=== PATIENT | female | born 1945 ===

== ENCOUNTER 2017-04-13 07:00 | Day surgery (SDC) | payer OTHER ==
[~2017-04-13] VITALS: Ht 154.9 cm; Wt 63.5 kg
[2017-04-13] VITALS (9 sets, daily range): BP systolic 141–182; BP diastolic 60–70
[~2017-04-13 07:00] MED LIST: ASPIR 8181 MG ORAL; DIOVAN160 MG ORAL; PRAVASTATIN SOD10 M1 ORAL; TOPIRAMATE200 MG PO; VITAMIN D1000 UNI1 ORAL
[2017-04-13] MEDS ORDERED: Vigamox Opth Soln 3ml ONE (07:37)
[2017-04-13] MEDS ORDERED: Tobradex Opth Susp 2.5ml ONE (07:38)
[2017-04-13] MEDS ORDERED: Flurbiprofen 0.03% Opth Sol 2.5ml ONE (07:38)
[2017-04-13] MEDS ORDERED: Akten 3.5% 1ml Btl ONE (07:38)
[2017-04-13] MEDS ORDERED: Tropicamide 1% Opth 15ml Soln ONE (07:38)
[2017-04-13] MEDS ORDERED: Phenylephrine 2.5% Op 2ml Soln ONE (07:38)
[2017-04-13] MEDS: Akten 3.5% 1ml Btl RIGHT EYE SCH ×3 (07:40→07:59)
--- NOTE | 2017-04-13 07:40 | Pre-Procedure Note/Attestation ---
Pre-Procedure Note/Attestation Complete Prior to Procedure Planned Procedure: right Procedure Narrative: cataract extraction with implant right eye Indications for Procedure Pre-Operative Diagnosis: cataract right eye Attestation I attest that I discussed the nature of the procedure; its benefits; risks and complications; and alternatives (and the risks and benefits of such alternatives ), prior to the procedure, with the patient (or the patient's legal pharmaceutical sales representative). I attest that, if there was a reasonable possibility of needing a blood transfusion, the patient (or the patient's legal pharmaceutical sales representative) was given the [facility] standardized written summary, pursuant to the [place] Blood Safety Act ([place] Health and Safety Code # 1645, as amended). I attest that I re-evaluated the patient just prior to the surgery and that there has been no change in the patient's H&P, except as documented below: ROHAN ORNELAS Apr 13, 2017 07:40
[2017-04-13] MEDS: Vigamox Opth Soln 3ml RIGHT EYE SCH ×3 (07:41→08:00)
[2017-04-13] MEDS: Phenylephrine 2.5% Op 2ml Soln RIGHT EYE SCH ×3 (07:41→07:59)
[2017-04-13] MEDS: Flurbiprofen 0.03% Opth Sol 2.5ml RIGHT EYE SCH ×3 (07:41→08:00)
[2017-04-13] MEDS: Tobradex Opth Susp 2.5ml RIGHT EYE SCH ×3 (07:41→08:00)
[2017-04-13] MEDS: Tropicamide 1% Opth 15ml Soln RIGHT EYE SCH ×3 (07:41→07:59)
[2017-04-13] MEDS ORDERED: Sterile Water Irrig 1000ml IRRIG ONE (08:30)
[2017-04-13] MEDS ORDERED: NS Irrig 1000ml ONE (08:30)
[2017-04-13] MEDS ORDERED: LR 1000ml ONE (08:30)
--- NOTE | 2017-04-13 08:42 | Immediate Post-Op Evaluation ---
Immediate Post-Op Evalulation Immediate Post-Op Evalulation Procedure: Right eye cataract removal w/ implant Date of Evaluation: Apr 13, 2017 Time of Evaluation: 08:54 IV Fluids: LR Blood Products: 0 Estimated Blood Loss: less than 2 ml Urinary Output: 0 Blood Pressure Systolic: 180 Blood Pressure Diastolic: 65 Pulse Rate: 56 Respiratory Rate: 16 O2 Sat by Pulse Oximetry: 99 Temperature (Fahrenheit): 97.9 Pain Score (1-10): 0 Nausea: No Vomiting: No Complications none Patient Status: awake, reacts, patent Hydration Status: adequate Given Within 1 Hr of Incision: No - none per surgeon Marcela Alonso CRNA Apr 13, 2017 08:42
--- NOTE | 2017-04-13 08:47 | Anethesia Preoperative Eval ---
Anesthesia Pre-op PMH/ROS General Date of Evaluation: Apr 13, 2017 Time of Evaluation: 08:20 Anesthesiologist: Celeste ASA Score: ASA 2 Mallampati Score Class I : Soft palate, uvula, fauces, pillars visible Class II: Soft palate, uvula, fauces visible Class III: Soft palate, base of uvula visible Class IV: Only hard plate visible Mallampati Classification: Class III Surgeon: Juan Diagnosis: right eye catract Surgical Procedure: right eye cataract removal with implant Anesthesia History: none Family History: no anesthesia problems Allergies: Coded Allergies: SULFA (SULFONAMIDE ANTIBIOTICS) (Verified Allergy, Severe, 04/12/17) anaphylactic shock DIAZEPAM (Verified Allergy, Intermediate, 04/12/17) agitated MEPERIDINE (Verified Allergy, Intermediate, 04/12/17) agitated Past Medical History Cardiovascular: Reports: HTN, other - cholesterol Pulmonary: Reports: other - uses CPAP for polio syndrome Gastrointestinal/Genitourinary: Denies: GERD, CRI, ESRD, other Neurologic/Psychiatric: Denies: dementia, CVA, depression/anxiety, TIA, other Endocrine: Denies: DM, hypothyroidism, steroids, other HEENT: Reports: cataract (L), cataract (R) Hematology/Immune: Reports: other - polio - got it at 8 years old Musculoskeletal/Integumentary: Reports: OA Anesthesia Pre-op Phys. Exam Physician Exam Last Vital Signs Date Time Temp Pulse Resp B/P (MAP) Pulse Ox O2 Delivery O2 Flow Rate FiO2 04/13/17 07:56 97.5 56 20 174/68 100 Room Air Constitutional: NAD Neurologic: CN 2-12 intact Cardiovascular: RRR Respiratory: CTA Gastrointestinal: S/NT/ND Airway Exam Mallampati Score: Class III MO: full ROM: full Teeth: intact Dentures: no upper, no lower Anesthesia Pre-op A/P Labs chart reviewed Studies Pre-op Studies: EKG - NSR Risk Assessment & Plan Assessment: AxO x3 Plan: plan discussed with patient and surgeon, plan for local with monitoring Status Change Before Surgery: No Pre-Antibiotics Given Within 1 Hr of Incision: Marcela Solorzano CRNA Apr 13, 2017 08:47
--- NOTE | 2017-04-13 08:47 | 48 Hour Post Anesthesia Eval ---
Post Anesthesia Evaluation Procedure: Right eye cataract removal w/ implant Date of Evaluation: Apr 13, 2017 Time of Evaluation: 09:00 Blood Pressure Systolic: 177 0: 68 Pulse Rate: 59 Respiratory Rate: 18 Temperature (Fahrenheit): 97.7 O2 Sat by Pulse Oximetry: 100 Airway: patent Nausea: No Vomiting: No Pain Intensity: 0 Hydration Status: adequate Cardiopulmonary Status: WNL Mental Status/LOC: patient returned to baseline Follow-up care needed: patient intructions given Marcela Alonso CRNA Apr 13, 2017 08:47
--- NOTE | 2017-04-13 08:58 | Brief Operative Note ---
Immediate Post Operative Note Operative Note Pre-op Diagnosis: cataract right eye Procedure: phacoemulsification of cataract with implant right eye Post-op Diagnosis: same as pre-op Surgeon: rohan navarro Brass Polisher: none Anesthesiologist: tani contreras crna Anesthesia: MAC Specimen: none Complications: none Condition: stable Fluids: none Estimated Blood Loss: none Drains: none Implant(s) used?: Yes ROHAN NAVARRO Apr 13, 2017 08:58
[2017-04-13] MEDS ORDERED: BSS 15ml BTL ONE (12:17)
[2017-04-13] MEDS ORDERED: BSS 500ml btl ONE (12:17)
[2017-04-13] MEDS ORDERED: Sodium Hyaluronate 14 mg/ml 0.85ml ONE (12:17)
[2017-04-13] MEDS ORDERED: EPINEPHrine 1mg/1ml Amp ONE (12:17)
[2017-04-13] MEDS ORDERED: Dexamethasone 4mg/ml vial ONE (12:17)
[2017-04-13] MEDS ORDERED: Povidone-Iodine 5% opth solution ONE (12:17)
[2017-04-13] MEDS ORDERED: Lidocaine 1% MPF 10mg/ml 5ml ONE (12:17)
--- NOTE | 2017-04-13 13:00 | Operative Note - Dictated ---
DATE OF OPERATION: 04/13/2017 PREOPERATIVE DIAGNOSIS: Cataract, right eye. POSTOPERATIVE DIAGNOSIS: Cataract, right eye. PROCEDURE: Phacoemulsification cataract, right eye with placement of posterior chamber intraocular lens. SURGEON: Valdemar Martinez M.D. ([facility]) PRINCIPAL DATABASE DEVELOPER: None. ANESTHESIA: MAC/topical. ANESTHESIOLOGIST: Marcela Alonso CRNA. INDICATION FOR PROCEDURE: Poor vision, right eye. DESCRIPTION OF FINDINGS: Nuclear sclerotic cataract, right eye. DESCRIPTION OF PROCEDURE: The patient received a topical anesthetic block consisting of 3.5% Akten eye drops. The eye was then prepped and draped in the usual manner. A lid speculum was placed. An operating Zeiss microscope was positioned. A temporal corneal groove was made with a rommel blade. A SuperSharp blade made a stab incision at the 12 o'clock position. A 0.1 mL of 1% nonpreserved intracameral lidocaine was injected. Healon was instilled into the anterior chamber and a 2.5/2.8 mm trapezoidal rommel blade was used to complete the temporal corneal wound. A cystotome was used to create an anterior capsular flap. Utrata forceps were used to complete the capsulorrhexis. BSS on a cannula was used to hydrodissect the nucleus. The lens nucleus phacoemulsified in a phacofracture technique. Remaining cortical material was removed with the I/A and the posterior capsule was polished with the I/A on Cap vac. Healon was instilled into the capsular bag and the anterior chamber and an Lee foldable one-piece posterior chamber intraocular lens, model ZCB00, power 25.5 diopter, serial #[id number] was placed in the injector. The lens was put into the capsular bag. I/A tip was used to remove the Healon and position the lens. The wound edge was hydrated with BSS and a blunt-tipped cannula. The wound was checked and found to be watertight. Lid speculum was removed and a drop of TobraDex and Vigamox was placed. A clear plastic shield was taped over the eye. The patient tolerated the procedure well and left the operating room in good condition. Valdemar Martinez M.D. ([facility]) DR: ZENY JOB#: [id number] CC: BALTA
== END 2017-04-13 10:20 | disposition home or self-care (01) ==
LOC: SUR 07:00
DX: H25.11 Age-related nuclear cataract, right eye (principal); I10 Essential (primary) hypertension; M19.90 Unspecified osteoarthritis, unspecified site; Z88.2 Allergy status to sulfonamides; Z88.8 Allergy status to other drugs, medicaments and biological substances
CPT/HCPCS: 66984; J0171; J1100; J7120; V2632; 94003; 94150